=== PATIENT | male | born 1980 ===

== ENCOUNTER 2022-06-06 02:24 | Observation (INO) | payer BC, SELFPAY ==
[2022-06-06 04:55] VITALS: BMI 28.7
[2022-06-06] MEDS ORDERED: Ondansetron PF 4 MG/2 ML Vial IVP PRN ×2 (06:30→21:09)
[2022-06-06] MEDS ORDERED: Ondansetron ODT 4 MG TAB SL PRN (06:30)
[2022-06-06] MEDS ORDERED: Acetaminophen 325 MG TAB PO PRN (06:30)
[2022-06-06] MEDS ORDERED: Senokot S 8.6-50 MG TAB PO PRN (08:16)
[2022-06-06] MEDS ORDERED: Loperamide HCl 2 MG CAP PO PRN (08:19)
[2022-06-06] MEDS ORDERED: Sodium Chloride 0.9% 500 ML IV SCH (08:30)
[2022-06-06] MEDS: Ascorbic Acid 500 mg Chewable Tablet PO SCH (09:52)
[2022-06-06] MEDS: Zinc Sulfate 220 MG CAP PO SCH (09:52)
[2022-06-06] MEDS: Famotidine/PF 20 mg/2ml Vial SLOW IVP SCH ×2 (09:54→22:03)
[2022-06-06] MEDS: Sodium Chloride 0.9% 1,000 ML IV SCH ×2 (09:55→16:45)
[2022-06-06] MEDS: Enoxaparin Sodium 40 MG/0.4 ML SYRINGE SC SCH (09:59)
[2022-06-06 10:17] LABS: #Lymphocytes 0.9 thou/uL (1.20-3.40); #Monocytes 0.3 thou/uL (0.11-0.59); #Neutrophils 2.6 thou/uL (1.40-6.50); %Basophils 0.2 % (0.0-1.0); %Eosinophils 0.4 % (0.0-10.0); %Lymphocytes 23.6 % (21.0-51.0); %Monocytes 8.2 % (0.0-10.0); %Neutrophils 67.6 % (42.0-75.0); Hemoglobin 17.2 g/dL (14.0-18.0); Mean Corpuscular HGB CONC 34.2 g/dL (32.0-36.0); Mean Corpuscular Hemoglobin 31.7 pg (27.0-31.0); Mean Corpuscular Volume 92.6 fL (78.0-98.0); Mean Platelet Volume 7.9 fL (7.4-10.4); Platelet Count 133 thou/uL (130-400); RBC Distribution Width 11.8 % (11.5-14.5); Red Blood Cell (RBC) Count 5.44 mill/uL (4.70-6.10); White Blood Cell (WBC) Count 3.8 thou/uL (4.8-10.8)
[2022-06-06 10:35] LABS: ALT (SGPT) 52 U/L (8-55); AST (SGOT) 32 U/L (5-34); Albumin 4.4 g/dL (3.5-5.0); Alkaline Phosphatase 45 U/L (40-110); Anion Gap 17 mmol/L (10-20); BUN (Urea Nitrogen) 12 mg/dL (8.9-20.6); Bilirubin, Total 0.4 mg/dL (0.2-1.2); CRP (Inflammatory) Less than 0.50 mg/dL (= or < 0.5); Calc. Creatinine Clearance 113 mL/min (70-130); Calcium 8.9 mg/dL (7.8-10.44); Carbon Dioxide 21 mmol/L (22-29); Chloride 106 mmol/L (98-107); Estimated GFR 94; Globulin 3.1 g/dL (2.4-3.5); Glucose 129 mg/dL (70-105); Magnesium 1.8 mg/dL (1.6-2.6); Phosphorus 4.3 mg/dL (2.3-4.7); Potassium 3.8 mmol/L (3.5-5.1); Protein, Total 7.5 g/dL (6.0-8.3); Sodium 140 mmol/L (136-145)
[2022-06-06] MEDS: NIRMATRELVIR 150 MG/RITONAVIR 100 MG TABLET PO SCH (22:03)
[2022-06-07] MEDS: guaiFENesin 200 MG TAB PO PRN ×2 (01:40→08:05)
[2022-06-07] MEDS: Sodium Chloride 0.9% 1,000 ML IV SCH (01:51)
[2022-06-07 06:02] LABS: #Lymphocytes 1.5 thou/uL (1.20-3.40); #Monocytes 0.3 thou/uL (0.11-0.59); #Neutrophils 1.6 thou/uL (1.40-6.50); %Basophils 0.4 % (0.0-1.0); %Eosinophils 0.2 % (0.0-10.0); %Lymphocytes 43.5 % (21.0-51.0); %Monocytes 8.1 % (0.0-10.0); %Neutrophils 47.8 % (42.0-75.0); Mean Corpuscular HGB CONC 33.8 g/dL (32.0-36.0); Mean Corpuscular Hemoglobin 31.2 pg (27.0-31.0); Mean Corpuscular Volume 92.3 fL (78.0-98.0); Mean Platelet Volume 7.7 fL (7.4-10.4); Platelet Count 125 thou/uL (130-400); RBC Distribution Width 11.8 % (11.5-14.5); White Blood Cell (WBC) Count 3.3 thou/uL (4.8-10.8)
[2022-06-07 06:23] LABS: Anion Gap 11 mmol/L (10-20); BUN (Urea Nitrogen) 10 mg/dL (8.9-20.6); Calc. Creatinine Clearance 126 mL/min (70-130); Calcium 8.3 mg/dL (7.8-10.44); Carbon Dioxide 25 mmol/L (22-29); Chloride 108 mmol/L (98-107); Estimated GFR 106; Glucose 158 mg/dL (70-105); Potassium 3.3 mmol/L (3.5-5.1); Sodium 141 mmol/L (136-145)
[2022-06-07] MEDS: Enoxaparin Sodium 40 MG/0.4 ML SYRINGE SC SCH (08:04)
[2022-06-07] MEDS: Famotidine/PF 20 mg/2ml Vial SLOW IVP SCH (08:04)
[2022-06-07] MEDS: Ascorbic Acid 500 mg Chewable Tablet PO SCH (08:04)
[2022-06-07] MEDS: Zinc Sulfate 220 MG CAP PO SCH (08:04)
[2022-06-07] MEDS: NIRMATRELVIR 150 MG/RITONAVIR 100 MG TABLET PO SCH (08:07)
[2022-06-07 11:07] VITALS: BP 115/71; TEMP 98.4
== END 2022-06-07 14:30 | disposition home or self-care (01) ==
LOC: SJJU 02:24
PROVIDERS: ADMIT Internal Medicine; ATTEND Internal Medicine
DX: U07.1 COVID-19 (principal); E86.0 Dehydration; D69.6 Thrombocytopenia, unspecified; J45.909 Unspecified asthma, uncomplicated; K21.9 Gastro-esophageal reflux disease without esophagitis; I10 Essential (primary) hypertension
CPT/HCPCS: 36415; 71045; 80048; 80053; 83615; 83735; 84100; 85025; 86140; 93005; 93010; 96361; 96372; 96374; 96375; 96376; G0378; J1650; J2405; J7030; J7050; J7620; S0028